=== PATIENT | male | born 1980 | race Caucasian/White ===

== ENCOUNTER 2016-12-05 15:25 | Emergency (ER) | payer BC ==
[2016-12-05] MEDS ORDERED: Ketorolac 60 MG/2 ML SDV IM ONE (16:27)
--- NOTE | 2016-12-05 16:39 | EDM.PDOC ---
ED HPI GENERAL MEDICAL PROBLEM - General Chief Complaint: Headache Stated Complaint: HEADACHE Time Seen by Provider: 12/05/16 16:20 Source of Information: Reports: Patient History Limitations: Reports: No Limitations - History of Present Illness INITIAL COMMENTS - FREE TEXT/NARRATIVE: History of present illness: [36-year-old male comes in presenting with acute headache without history of headaches. Patient indicates that the headache came on like a thunderclap made him nauseated and he rarely avoided vomiting. Patient denies trauma and/or history of hypertension.] Review of systems: As per history of present illness and below otherwise all systems reviewed and negative. Past medical history: As per history of present illness and as reviewed below otherwise noncontributory. Surgical history: As per history of present illness and as reviewed below otherwise noncontributory. Social history: No reported history of drug or alcohol abuse. Family history: As per history of present illness and as reviewed below otherwise noncontributory. Physical exam: HEENT: Atraumatic, normocephalic, pupils reactive, negative for conjunctival pallor or scleral icterus, mucous membranes moist, throat clear, neck supple, nontender, trachea midline. Lungs: Clear to auscultation, breath sounds equal bilaterally, chest nontender. Heart: S1S2, regular, negative for clicks, rubs, or JVD. Abdomen: Soft, nondistended, nontender. Negative for masses or hepatosplenomegaly. Negative for costovertebral tenderness. Pelvis: Stable nontender. Genitourinary: Deferred. Rectal: Deferred. Extremities: Atraumatic, negative for cords or calf pain. Neurovascular unremarkable. Neuro: Awake, alert, oriented. Cranial nerves II through XII unremarkable. Cerebellum unremarkable. Motor and sensory unremarkable throughout. Exam nonfocal. Global assessment is benign save subjective complaint as noted in the history of present illness Diagnostics: [CT of the head without contrast] Therapeutics: [Toradol, Norflex] Impression: [Neck pain] Plan: [Norflex, meloxicam] Definitive disposition and diagnosis as appropriate pending reevaluation and review of above. Occipital Headache Pain Score (Numeric/FACES): 8 - Related Data Allergies Allergy/AdvReac Type Severity Reaction Status Date / Time No Known Allergies Allergy Verified 12/05/16 15:57 Home Meds: Home Meds . [No Known Home Meds] 12/05/16 [History] Past Medical History HEENT History: Reports: None Cardiovascular History: Reports: None Respiratory History: Reports: None Neurological History: Reports: None Dermatologic History: Reports: None - Infectious Disease History Infectious Disease History: Reports: None - Past Surgical History HEENT Surgical History: Reports: None Cardiovascular Surgical History: Reports: None Musculoskeletal Surgical History: Reports: Other (See Below) Other Musculoskeletal Surgeries/Procedures:: hip surgery Social & Family History - Tobacco Use Smoking Status *Q: Current Every Day Smoker Years of Tobacco use: 25 Packs/Tins Daily: 1 ED ROS GENERAL - Review of Systems Review Of Systems: See Below (History of present illness) - Physical Exam Exam: See Below (See history of present illness) Course - Vital Signs Last Recorded V/S: Last Vital Signs Temp 36.6 C 12/05/16 15:58 Pulse 72 12/05/16 15:58 Resp 20 12/05/16 15:58 BP 138/81 12/05/16 15:58 Pulse Ox 97 12/05/16 15:58 - Orders/Labs/Meds Orders: Active Orders 24 hr Category Date Time Status Cervical Spine wo Cont [CT] Stat Exams 12/05/16 16:28 Ordered Head wo Cont [CT] Stat Exams 12/05/16 16:28 Ordered Orphenadrine [Norflex] Med 12/05/16 16:30 Active 60 mg IM Q12H Medication Orders Orphenadrine Citrate (Norflex) 60 mg IM Q12H ANGELA Last Admin: 12/05/16 16:38 Dose: 60 mg Meds: Medications Generic Name Dose Route Start Last Admin Trade Name Freq PRN Reason Stop Dose Admin Orphenadrine Citrate 60 mg 12/05/16 16:30 12/05/16 16:38 Norflex IM 60 mg Q12H ANGELA Administration Discontinued Medications Generic Name Dose Route Start Last Admin Trade Name Freq PRN Reason Stop Dose Admin Ketorolac Tromethamine 60 mg 12/05/16 16:27 12/05/16 16:38 Toradol IM 12/05/16 16:28 60 mg ONETIME ONE Administration Departure - Departure Time of Disposition: 18:18 Disposition: Home, Self-Care 01 Condition: Good Clinical Impression: Headache - Discharge Information Instructions: General Headache Without Cause, [id number] Forms: ED Department Discharge Additional Instructions: The following information is given to patients seen in the emergency department who are being discharged to home. This information is to outline your options for follow-up care. We provide all patients seen in our emergency department with a follow-up referral. The need for follow-up, as well as the timing and circumstances, are variable depending upon the specifics of your emergency department visit. If you don't have a primary care physician on staff, we will provide you with a referral. We always advise you to contact your personal physician following an emergency department visit to inform them of the circumstance of the visit and for follow-up with them and/or the need for any referrals to a consulting specialist. The emergency department will also refer you to a specialist when appropriate. This referral assures that you have the opportunity for follow-up care with a specialist. All of these measure are taken in an effort to provide you with optimal care, which includes your follow-up. Under all circumstances we always encourage you to contact your private physician who remains a resource for coordinating your care. When calling for follow-up care, please make the office aware that this follow-up is from your recent emergency room visit. If for any reason you are refused follow-up, please contact the [facility] Emergency Department at and asked to speak to the emergency department charge nurse. Take medication as directed Follow-up with PCP 1-2 days Turn to ED as needed as discussed [facility] [address] [place] [id number] - My Orders Last 24 Hours: My Active Orders 12/05/16 16:28 Cervical Spine wo Cont [CT] Stat Head wo Cont [CT] Stat 12/05/16 16:30 Orphenadrine [Norflex] 60 mg IM Q12H - Assessment/Plan Last 24 Hours: My Active Orders 12/05/16 16:28 Cervical Spine wo Cont [CT] Stat Head wo Cont [CT] Stat 12/05/16 16:30 Orphenadrine [Norflex] 60 mg IM Q12H
[2016-12-05 18:33] VITALS: BP 125/83
--- NOTE | 2016-12-07 14:24 | CT ---
EXAM DATE: 12/05/16 PATIENT'S AGE: 36 Patient: ARUN ROSSI Facility: [place], [place] Site . Site : 1980 Study: CT Head [id number] 5:27:24 PM Ordering Physician: Doctor Siddiqui Final Report: Indication: Headache. Neck pain. Technique: CT head: Performed without IV contrast CT cervical spine: Performed without IV contrast. Comparison: None available. Findings: Head: No intracranial hemorrhage. No brain edema or ischemia is identified. No fractures. The calvarium and skull base are unremarkable, with normal aeration of the petrous temporal bones on both sides. Some membrane thickening in the right anterior ethmoid air cells. Cervical spine: Straightening of the normal cervical lordosis. No traumatic subluxation identified. No evidence for fracture. Scattered spondylosis, including mild disk degenerative changes and low-grade foraminal narrowing at C5 -6 and C6-7. The paraspinal soft tissues are grossly negative. Impression: CT head. 1. No hemorrhage, brain contusion or fracture is identified. 2. Mild cerebral atrophy and possible mild small vessel ischemic changes noted. CT cervical spine: 1. No fracture or traumatic subluxation identified. 2. Multilevel spondylosis. Please note that all CT scans at this facility use dose modulation, iterative reconstruction, and/or weight-based dosing when appropriate to reduce radiation dose to as low as reasonably achievable. Dictated by Perfecto Foreman MD @ Dec 05 2016 5:45PM (Electronic Signature) Report Signed by Proxy. FAWAD
--- NOTE | 2016-12-07 14:25 | CT ---
EXAM DATE: 12/05/16 PATIENT'S AGE: 36 Patient: ARUN ROSSI Facility: [place], [place] Site . Site : 1980 Study: CT Spine Cervical [id number]/2017 5:34:05 PM Ordering Physician: Doctor Siddiqui Final Report: Indication: Headache. Neck pain. Technique: CT head: Performed without IV contrast CT cervical spine: Performed without IV contrast. Comparison: None available. Findings: Head: No intracranial hemorrhage. No brain edema or ischemia is identified. No fractures. The calvarium and skull base are unremarkable, with normal aeration of the petrous temporal bones on both sides. Some membrane thickening in the right anterior ethmoid air cells. Cervical spine: Straightening of the normal cervical lordosis. No traumatic subluxation identified. No evidence for fracture. Scattered spondylosis, including mild disk degenerative changes and low-grade foraminal narrowing at C5 -6 and C6-7. The paraspinal soft tissues are grossly negative. Impression: CT head. 1. No hemorrhage, brain contusion or fracture is identified. 2. Mild cerebral atrophy and possible mild small vessel ischemic changes noted. CT cervical spine: 1. No fracture or traumatic subluxation identified. 2. Multilevel spondylosis. Please note that all CT scans at this facility use dose modulation, iterative reconstruction, and/or weight-based dosing when appropriate to reduce radiation dose to as low as reasonably achievable. Dictated by Perfecto Foreman MD @ Dec 05 2016 5:39PM (Electronic Signature) Report Signed by Proxy. FAWAD
== END 2016-12-05 18:27 | disposition home or self-care (01) ==
LOC: MW.ED 15:25
DX: M54.2 Cervicalgia (principal); R51 Headache; F17.210 Nicotine dependence, cigarettes, uncomplicated
CPT/HCPCS: 70450; 72125; 96372; 99284; J1885; J2360; 99282

== ENCOUNTER 2017-03-18 22:50 | Emergency (ER) | payer BC ==
[2017-03-18 23:04] VITALS: BP 126/90
--- NOTE | 2017-03-18 23:11 | EDM.PDOC ---
ED HPI GENERAL MEDICAL PROBLEM - General Chief Complaint: Lower Extremity Injury/Pain Stated Complaint: PAIN/SWELLING LT LEG Time Seen by Provider: 03/18/17 22:56 - History of Present Illness INITIAL COMMENTS - FREE TEXT/NARRATIVE: HISTORY AND PHYSICAL: History of present illness: The patient is a 36-year-old male with no stated medical history who presents with complaints of swelling to the top of his knee cap on the left knee that started about 45 minutes ago after kneeling and crawling on the floor with his child. 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 He says it is not particularly painful but he was concerned because he knows he has varicose veins in that leg and he thought maybe the 2 were connected. He did not fall on it or twisted and he has no bony tenderness no redness no warmth and has full range of motion of the leg Review of systems: As per history of present illness and below otherwise all systems reviewed and negative. Past medical history: As per history of present illness and as reviewed below otherwise noncontributory. Surgical history: As per history of present illness and as reviewed below otherwise noncontributory. Social history: No reported history of drug or alcohol abuse. Family history: As per history of present illness and as reviewed below otherwise noncontributory. Physical exam: Gen.: Well-developed well-nourished man who is nontoxic and vital signs of the note by me. Patient ambulated into the ED without distress HEENT: Atraumatic, normocephalic, , negative for conjunctival pallor or scleral icterus, mucous membranes moist, throat clear, neck supple, nontender, trachea midline. Lungs: Clear to auscultation, breath sounds equal bilaterally, chest nontender. Heart: S1S2, regular rate and rhythm no overt murmurs Abdomen: Soft, nondistended, nontender. NABS Pelvis: Deferred Genitourinary: Deferred. Rectal: Deferred. Extremities: Atraumatic with full range of motion of all extremities. At the patella bursa there is a moderate amount of soft tissue swelling that does not involve the joint space and there is no tenderness soft tissue or bony on palpation. There is no warmth or redness appreciated. There is a very large varicose vein appreciated to the lateral side of the patella which is soft nontender and without warmth. At the skin of bilateral knees there are calluses appreciated and thickening of the skin consistent with his work. The legs are, negative for cords or calf pain. Neurovascular unremarkable. Neuro: Awake, alert, oriented. Cranial nerves II through XII unremarkable. Cerebellum unremarkable. Motor and sensory unremarkable throughout. Exam nonfocal. Diagnostics: I offered the patient x-ray of the knee which she defers Therapeutics: Vasquez bandage, patient refused pain medication I discussed with the patient that as he is not having any pain there is no emergent need to drain the bursa and in fact the body will likely resorb this on his own. We will give him an Vasquez bandage and he has a neoprene splint at home he can use. I advised follow-up in the orthopedics clinic and avoidance of kneeling or any friction to the knees Impression: Left patella bursal inflammation/bursitis stable Definitive disposition and diagnosis as appropriate pending reevaluation and review of above. left knee Pain Score (Numeric/FACES): 0 - Related Data Allergies Allergy/AdvReac Type Severity Reaction Status Date / Time No Known Allergies Allergy Verified 03/18/17 22:58 Home Meds: Home Meds Meloxicam 7.5 mg PO BID #30 tablet 12/05/16 [Rx] Orphenadrine [Norflex] 100 mg PO BID #28 tab.er 12/05/16 [Rx] Past Medical History HEENT History: Reports: None Cardiovascular History: Reports: None Respiratory History: Reports: None Neurological History: Reports: None Dermatologic History: Reports: None - Infectious Disease History Infectious Disease History: Reports: None - Past Surgical History HEENT Surgical History: Reports: None Cardiovascular Surgical History: Reports: None Musculoskeletal Surgical History: Reports: Other (See Below) Other Musculoskeletal Surgeries/Procedures:: hip surgery Social & Family History - Tobacco Use Smoking Status *Q: Current Every Day Smoker Years of Tobacco use: 25 Packs/Tins Daily: 1 Review of Systems - Review of Systems Review Of Systems: ROS reveals no pertinent complaints other than HPI. ED EXAM, GENERAL - Physical Exam Exam: See Below (See dictation) Course - Vital Signs Last Recorded V/S: Last Vital Signs Temp 36.6 C 03/18/17 22:59 Pulse 77 03/18/17 22:59 Resp 18 03/18/17 22:59 BP 126/90 03/18/17 22:59 Pulse Ox 98 03/18/17 22:59 - Orders/Labs/Meds Orders: Active Orders 24 hr Category Date Time Status DME for Discharge [COMM] Stat Oth 03/18/17 23:05 Ordered Departure - Departure Time of Disposition: 23:09 Disposition: Home, Self-Care 01 Condition: Good Clinical Impression: Patellar bursitis of left knee - Discharge Information Referrals: PCP,None [Primary Care Provider] - Additional Instructions: The following information is given to patients seen in the emergency department who are being discharged to home. This information is to outline your options for follow-up care. We provide all patients seen in our emergency department with a follow-up referral. The need for follow-up, as well as the timing and circumstances, are variable depending upon the specifics of your emergency department visit. If you don't have a primary care physician on staff, we will provide you with a referral. We always advise you to contact your personal physician following an emergency department visit to inform them of the circumstance of the visit and for follow-up with them and/or the need for any referrals to a consulting specialist. The emergency department will also refer you to a specialist when appropriate. This referral assures that you have the opportunity for followup care with a specialist. All of these measure are taken in an effort to provide you with optimal care, which includes your followup. Under all circumstances we always encourage you to contact your private physician who remains a resource for coordinating your care. When calling for followup care, please make the office aware that this follow-up is from your recent emergency room visit. If for any reason you are refused follow-up, please contact the [facility] emergency department at and ask to speak to the emergency department charge nurse. Specialty Care--Orthopedic clinic Professional Building [address] [place] [id number] Use the Vasquez to help compress the area and also wear neoprene splint that you have at home as you choose. Ice and elevate and please call and follow-up with her orthopedics clinic for further care and evaluation if the symptoms persist. Return to ER as needed and as discussed. Use [id number] pain medications as needed. Please try to avoid any kneeling activities or friction to this area. - My Orders Last 24 Hours: My Active Orders 03/18/17 23:05 DME for Discharge [COMM] Stat - Assessment/Plan Last 24 Hours: My Active Orders 03/18/17 23:05 DME for Discharge [COMM] Stat
== END 2017-03-18 23:18 | disposition home or self-care (01) ==
LOC: MW.ED 22:50
DX: M70.52 Other bursitis of knee, left knee (principal); F17.210 Nicotine dependence, cigarettes, uncomplicated; Z98.890 Other specified postprocedural states
CPT/HCPCS: 99283

== ENCOUNTER 2024-09-01 15:17 | Emergency (ER) | payer BC ==
[2024-09-01 15:41] LABS: BASOPHILS ABSOLUTE AUTO 0.05 K/uL (0.00-0.20); BASOPHILS PERCENT AUTO 0.6 % (0.0-1.0); EOSINOPHILS ABSOLUTE AUTO 0.08 K/uL (0.00-0.45); EOSINOPHILS PERCENT AUTO 0.9 % (0.0-6.0); HEMOGLOBIN 15.9 g/dL (14.0-18.0); IMMATURE GRAN ABSOLUTE AUTO 0.03 K/uL (0.00-0.05); IMMATURE GRAN PERCENT AUTO 0.4 % (0.0-0.4); LYMPHOCYTES PERCENT AUTO 34.2 % (24.0-44.0); MEAN CORPUSCULAR HGB CONC 34.6 g/dL (32.0-36.0); MEAN CORPUSCULAR VOLUME 83.9 fL (83.0-99.0); MEAN PLATELET VOLUME 11.1 fL (9.4-12.4); MONOCYTES ABSOLUTE AUTO 0.46 K/uL (0.00-0.80); MONOCYTES PERCENT AUTO 5.4 % (0.0-8.0); NEUTROPHILS ABSOLUTE AUTO 4.97 K/uL (1.80-7.70); NEUTROPHILS PERCENT AUTO 58.5 % (41.0-71.0); PLATELET COUNT,PLT 206 K/uL (150-400); RED BLOOD CELL COUNT 5.48 M/uL (4.52-5.90); WHITE BLOOD CELL COUNT,WBC 8.49 K/uL (3.9-11.3)
[2024-09-01 15:43] VITALS: PULSE 69
[2024-09-01 15:53] LABS: A/G RATIO 1.1 (0.9-1.6); ALBUMIN 4.1 g/dL (3.4-5.0); BILIRUBIN DIRECT 0.1 mg/dL (0.0-0.5); BILIRUBIN TOTAL 0.3 mg/dL (0.2-1.0); CALCIUM 9.5 mg/dL (8.5-10.1); EST CRCL DRUG DOSING (CG) 99.35 mL/min; POTASSIUM,K 3.9 mmol/L (3.5-5.1)
[2024-09-01] MEDS: Iopamidol 755 MG/ML 500 ML Multipack Bottle IVPUSH STA (16:16)
[2024-09-01] MEDS: Cyclobenzaprine 10 MG Tab PO ONE (16:24)
[2024-09-01 16:35] LABS: INR 0.94 (0.86-1.11); PTT,PARTIAL THROMBOPLSTIN TIME 33.7 SEC (23.9-30.7)
[2024-09-01] MEDS: HYDROmorphone 1 MG/ML Syringe IVPUSH ONE (17:37)
[2024-09-01 17:44] VITALS: BP 189/102
== END 2024-09-01 17:44 | disposition home or self-care (01) ==
LOC: MW.ED 15:17
DX: R51.9 Headache, unspecified (principal); Z79.899 Other long term (current) drug therapy; Z75.8 Other problems related to medical facilities and other health care
CPT/HCPCS: 36415; 70450; 70496; 70498; 80053; 82248; 84484; 85025; 85610; 85730; 86850; 86900; 86901; 96374; 99284; A9270; J1171; Q9967; 99283